=== PATIENT | female | born 1960 | race African-American/Black ===

== ENCOUNTER → 2016-11-07 | Outpatient (CLI) | payer MEDICAID ==
[~2016-11-07] MED LIST: ASPIRIN 32325 MG/TAB PO; CHANTIX0.5 MG PO; FLEXERIL 1010 MG/TAB PO; LIPITOR20 MG PO; NITROSTAT0.4 MG/TAB SL; NO HOME MEDICATIONS; NORCO 325 MG-51 TAB PO; PHENERGAN 25 TA25 MG PO; PRENATAL VITAMI1 TA3 PO; TOPROL XL 25MG25 MG PO
== END ==
LOC: MC.RAD 11:40
DX: Z12.31 Encounter for screening mammogram for malignant neoplasm of breast (principal)

== ENCOUNTER → 2018-01-09 | Outpatient (CLI) | payer BC, MEDICAID | LOC: COL.RAD 12:57 | DX: J44.9 Chronic obstructive pulmonary disease, unspecified (principal); R93.89 Abnormal findings on diagnostic imaging of other specified body structures; Z87.891 Personal history of nicotine dependence ==